=== PATIENT | female | born 1935 | race Caucasian/White ===

== ENCOUNTER 2019-03-06 16:31 | Emergency (ER) | payer MEDICARE, MEDICAID ==
[~2019-03-06] VITALS: Ht 165.1 cm; Wt 78.0 kg
[2019-03-06] MEDS ORDERED: SODIUM CHLORIDE 0.9% 1,000 ML IV ONE (16:55)
[2019-03-06 17:13] LABS: BASOPHILS % 0.5 % (0.0-2.0); EOSINOPHILS % 0.7 % (0.0-5.0); HEMATOCRIT. 36.3 % (36.0-48.0); HEMOGLOBIN. 12.1 g/dL (12.0-16.0); LYMPHOCYTES % 11.9 % (20.0-50.0); MEAN CORPUSCULAR HEMOGLOBIN 29.2 pg (28.0-32.0); MEAN CORPUSCULAR VOLUME 87.8 fL (81.0-99.0); MONOCYTES % 4.8 % (2.0-8.0); NEUTROPHILS % 82.1 % (40.0-76.0); PLATELET 314 x1000/uL (130-400); RED BLOOD CELL COUNT 4.14 mill/uL (4.2-5.4); RED CELL DISTRIBUTION WIDTH 19.5 % (11.6-14.6)
[2019-03-06 17:17] LABS: CHLORIDE 106 mEq/L (98-107)
[2019-03-06 17:43] LABS: CLARITY URINE CLEAR (CLEAR); COLOR URINE YELLOW (YELLOW); KETONES URINE NEGATIVE (NEGATIVE); LEUKOCYTE ESTERASE URINE NEGATIVE (NEGATIVE); NITRITE URINE NEGATIVE (NEGATIVE); OCCULT BLOOD URINE 1+ (NEGATIVE); PROTEIN URINE NEGATIVE (NEGATIVE); SPECIFIC GRAVITY URINE 1.022 (1.005-1.030); UROBILINOGEN URINE 0.2 E.U./dL (0.2-1.0)
[2019-03-06 19:02] VITALS: BP 120/76
[2019-03-07] MEDS ORDERED: DONE5TAB33 PO (17:58)
[2019-03-07] MEDS ORDERED: CITA20SO PO (17:58)
[2019-03-07] MEDS ORDERED: PANT20TA3 PO (17:58)
[2019-03-07] MEDS ORDERED: FERR325T6 PO (17:58)
[2019-03-07] MEDS ORDERED: RANI15SY PO (17:58)
[2019-03-07] MEDS ORDERED: ALPR0.25 PO (17:58)
[2019-03-07] MEDS ORDERED: CALC-1011 PO (17:58)
== END 2019-03-06 19:02 | disposition home or self-care (01) ==
LOC: ER 16:56
DX: R55 Syncope and collapse (principal); I10 Essential (primary) hypertension; R41.0 Disorientation, unspecified
CPT/HCPCS: 36415; 70450; 71045; 80053; 81003; 83880; 84484; 85025; 93005; 96360; 99284; J7030

== ENCOUNTER 2021-07-30 15:57 | Inpatient (IN) | payer MEDICARE, MEDICAID ==
[~2021-07-30] VITALS: Ht 152.4 cm; Wt 74.0 kg
[~2021-07-30 15:57] MED LIST: ALPR0.25 PO; CALC-1011 PO; CITA20SO2 PO; DONE5TAB33 PO; FERR325T6 PO; PANT20TA17 PO; RANI15SY PO
[2021-07-30] MEDS ORDERED: ACETAMINOPHEN 325MG TABLET PO ONE (16:45)
[2021-07-30 17:08] LABS: BASOPHILS % 1.3 % (0.0-2.0); EOSINOPHILS % 1.6 % (0.0-5.0); HEMATOCRIT. 23.8 % (36.0-48.0); HEMOGLOBIN. 7.3 g/dL (12.0-16.0); LYMPHOCYTES % 17.1 % (20.0-50.0); MEAN CORPUSCULAR HEMOGLOBIN 23.7 pg (28.0-32.0); MEAN CORPUSCULAR VOLUME 76.7 fL (81.0-99.0); MEAN PLATELET VOLUME 7.9 fl (7.4-10.4); MONOCYTES % 9.8 % (2.0-8.0); NEUTROPHILS % 70.2 % (40.0-76.0); PLATELET 423 x1000/uL (130-400)
[2021-07-30 17:09] LABS: CHLORIDE 109 mEq/L (98-107)
[2021-07-30 22:11] LABS: CLARITY URINE CLEAR (CLEAR); COLOR URINE YELLOW (YELLOW); KETONES URINE NEGATIVE (NEGATIVE); LEUKOCYTE ESTERASE URINE TRACE (NEGATIVE); NITRITE URINE NEGATIVE (NEGATIVE); OCCULT BLOOD URINE NEGATIVE (NEGATIVE); PH URINE 6.5 (4.5-8.0); PROTEIN URINE NEGATIVE (NEGATIVE); SPECIFIC GRAVITY URINE 1.018 (1.005-1.030); UROBILINOGEN URINE 0.2 E.U./dL (0.2-1.0)
[2021-07-30 23:00] VITALS: BP 167/58
[2021-07-30] MEDS ORDERED: MONTELUKAST (23:40)
[2021-07-30] MEDS ORDERED: FAMOTIDINE (23:40)
[2021-07-30] MEDS ORDERED: ASPI-1497 MT (23:40)
[2021-07-30] MEDS ORDERED: ZYRTEC (23:40)
[2021-07-30] MEDS ORDERED: FUROSEMIDE (23:40)
[2021-07-30] MEDS ORDERED: TYLENOL (23:40)
[2021-07-31] VITALS (10 sets, daily range): BP systolic 134–175; BP diastolic 41–57
[2021-07-31 02:46] LABS: BASOPHILS % 1.4 % (0.0-2.0); EOSINOPHILS % 2.1 % (0.0-5.0); HEMATOCRIT. 23.7 % (36.0-48.0); HEMOGLOBIN. 7.1 g/dL (12.0-16.0); LYMPHOCYTES % 23.2 % (20.0-50.0); MEAN CORPUSCULAR HEMOGLOBIN 23.3 pg (28.0-32.0); MEAN CORPUSCULAR VOLUME 77.8 fL (81.0-99.0); MEAN PLATELET VOLUME 7.3 fl (7.4-10.4); NEUTROPHILS % 63.3 % (40.0-76.0); PLATELET 381 x1000/uL (130-400); RED BLOOD CELL COUNT 3.05 mill/uL (4.2-5.4); RED CELL DISTRIBUTION WIDTH 20.6 % (11.6-14.6)
[2021-07-31 03:08] LABS: CREATINE KINASE 45 IU/L (26-192)
[2021-07-31 03:09] LABS: T4 FREE 0.91 ng/dL (0.76-1.46)
[2021-07-31 03:10] LABS: CREATINE KINASE MB FRACTION 1.2 ng/mL (0.5-3.6)
[2021-07-31 03:11] LABS: TOTAL IRON BINDING CAPACITY 445 ug/dL (250-450)
[2021-07-31] MEDS: PANTOPRAZOLE 40MG DR TABLET PO SCH (06:21)
[2021-07-31] MEDS: CITALOPRAM HYDROBROMIDE 10MG TABLET PO SCH (09:02)
[2021-07-31] MEDS ORDERED: BENA10TA74 PO (10:59)
[2021-07-31] MEDS ORDERED: ALBU2.5V13 NEB (11:01)
[2021-07-31] MEDS ORDERED: FLUT1AER INH (11:01)
[2021-07-31 11:14] LABS: BASOPHILS % 0.7 % (0.0-2.0); EOSINOPHILS % 1.4 % (0.0-5.0); HEMATOCRIT. 21.7 % (36.0-48.0); LYMPHOCYTES % 15.6 % (20.0-50.0); MEAN CORPUSCULAR HEMOGLOBIN 24.2 pg (28.0-32.0); MEAN CORPUSCULAR VOLUME 76.4 fL (81.0-99.0); MEAN PLATELET VOLUME 7.5 fl (7.4-10.4); MONOCYTES % 9.9 % (2.0-8.0); NEUTROPHILS % 72.4 % (40.0-76.0); PLATELET 366 x1000/uL (130-400); RED BLOOD CELL COUNT 2.84 mill/uL (4.2-5.4); RED CELL DISTRIBUTION WIDTH 19.7 % (11.6-14.6)
[2021-07-31 11:16] LABS: CHLORIDE 109 mEq/L (98-107)
[2021-07-31 11:23] LABS: LDL CHOLESTEROL 91 mg/dL (5-100)
[2021-07-31 11:25] LABS: CREATINE KINASE 49 IU/L (26-192); HDL CHOLESTEROL 58 mg/dL (40-59)
[2021-07-31 11:28] LABS: CREATINE KINASE MB FRACTION 1.2 ng/mL (0.5-3.6)
[2021-07-31 11:30] LABS: HEMOGLOBIN. 6.9 g/dL (12.0-16.0)
[2021-07-31] MEDS ORDERED: CEFTRIAXONE 1 G PREMIX 50 ML IV SCH (11:30)
[2021-07-31 12:28] LABS: VITAMIN B12 SERUM 476 pg/mL (211-911)
[2021-07-31] MEDS: CEFTRIAXONE 1,000 MG in DEXTROSE 5% WATER 50 ML IV SCH (13:47)
[2021-07-31] MEDS ORDERED: HYDROCODONE/ACETAMINOPHEN 5/325MG TABLET PO PRN (16:30)
[2021-07-31] MEDS ORDERED: IPRATROPIUM/ALBUTEROL 0.5-3(2.5)MG/3ML NEB HHN PRN (16:30)
[2021-07-31] MEDS ORDERED: BISACODYL 10MG SUPP PR PRN (16:30)
[2021-07-31] MEDS ORDERED: DIPHENHYDRAMINE 50MG/ML VIAL IV PRN (16:30)
[2021-07-31] MEDS ORDERED: ONDANSETRON HCL 4MG/2ML INJ IV PRN (16:30)
[2021-07-31] MEDS ORDERED: BUDESONIDE 0.5MG/2ML NEB HHN SCH (16:30)
[2021-07-31 16:36] LABS: TOTAL IRON BINDING CAPACITY 435 ug/dL (250-450)
[2021-07-31 16:46] LABS: FOLIC ACID (FOLATE) SERUM 17.2 ng/mL (>5.38)
[2021-07-31] MEDS ORDERED: IPRATROPIUM/ALBUTEROL 0.5-3(2.5)MG/3ML NEB HHN SCH (18:00)
[2021-07-31] MEDS: FERROUS SULFATE 325MG TABLET PO SCH (18:26)
[2021-07-31] MEDS: ALPRAZOLAM 0.5 MG TABLET PO PRN (19:36)
[2021-07-31] MEDS: HYDRALAZINE 20MG/ML VIAL IV PRN (20:55)
[2021-08-01] VITALS (7 sets, daily range): BP systolic 99–165; BP diastolic 51–57
[2021-08-01 06:22] LABS: BASOPHILS % 0.9 % (0.0-2.0); EOSINOPHILS % 0.4 % (0.0-5.0); HEMATOCRIT. 28.2 % (36.0-48.0); HEMOGLOBIN. 9.2 g/dL (12.0-16.0); LYMPHOCYTES % 12.8 % (20.0-50.0); MEAN CORPUSCULAR HEMOGLOBIN 25.8 pg (28.0-32.0); MEAN CORPUSCULAR VOLUME 78.6 fL (81.0-99.0); MEAN PLATELET VOLUME 8.3 fl (7.4-10.4); MONOCYTES % 8.2 % (2.0-8.0); NEUTROPHILS % 77.7 % (40.0-76.0); PLATELET 323 x1000/uL (130-400); RED BLOOD CELL COUNT 3.58 mill/uL (4.2-5.4); RED CELL DISTRIBUTION WIDTH 20.5 % (11.6-14.6)
[2021-08-01 06:31] LABS: CHLORIDE 108 mEq/L (98-107)
[2021-08-01 06:33] LABS: PROTHROMBIN TIME 10.6 sec (9.6-11.0)
[2021-08-01] MEDS: HYDRALAZINE 20MG/ML VIAL IV PRN (07:19)
[2021-08-01] MEDS: FERROUS SULFATE 325MG TABLET PO SCH ×2 (12:17→16:19)
[2021-08-01] MEDS: ACETAMINOPHEN 325MG TABLET PO PRN (12:17)
[2021-08-01] MEDS: CEFTRIAXONE 1,000 MG in DEXTROSE 5% WATER 50 ML IV SCH (13:43)
[2021-08-01] MEDS ORDERED: KETOROLAC 15MG/ML VIAL IV NR (15:45)
[2021-08-01] MEDS: PANTOPRAZOLE 40MG DR TABLET PO SCH (16:19)
[2021-08-01] MEDS: CITALOPRAM HYDROBROMIDE 10MG TABLET PO SCH (16:19)
[2021-08-01] MEDS: ALPRAZOLAM 0.5 MG TABLET PO PRN (20:11)
[2021-08-02] VITALS: BP 117/57
[2021-08-02 04:00] VITALS: BP 154/50
[2021-08-02] MEDS: PANTOPRAZOLE 40MG DR TABLET PO SCH (06:17)
[2021-08-02] MEDS: FERROUS SULFATE 325MG TABLET PO SCH ×2 (06:52→12:41)
[2021-08-02 08:00] VITALS: BP 140/52
[2021-08-02] MEDS: CITALOPRAM HYDROBROMIDE 10MG TABLET PO SCH (08:40)
[2021-08-02 11:59] LABS: HEMATOCRIT. 29.8 % (36.0-48.0); HEMOGLOBIN. 9.5 g/dL (12.0-16.0); MEAN CORPUSCULAR HEMOGLOBIN 25.1 pg (28.0-32.0); MEAN CORPUSCULAR VOLUME 79.3 fL (81.0-99.0); MEAN PLATELET VOLUME 7.7 fl (7.4-10.4); PLATELET 355 x1000/uL (130-400); RED BLOOD CELL COUNT 3.76 mill/uL (4.2-5.4); RED CELL DISTRIBUTION WIDTH 21.7 % (11.6-14.6)
[2021-08-02 12:00] VITALS: BP 147/63
[2021-08-02 12:12] LABS: CHLORIDE 104 mEq/L (98-107)
[2021-08-02] MEDS ORDERED: LEVO500T89 MT (12:36)
[2021-08-02] MEDS: CEFTRIAXONE 1,000 MG in DEXTROSE 5% WATER 50 ML IV SCH (12:41)
[2021-08-02] MEDS: ACETAMINOPHEN 325MG TABLET PO PRN (13:30)
[2021-08-02 13:41] VITALS: BP 141/82
[2021-08-03 01:48] LABS: PLATELET ESTIMATE NORMAL
== END 2021-08-02 14:35 | disposition home or self-care (01) | DRG 71 ==
LOC: ER 15:57 → 7EST 21:10 → ENRESERV 21:37
PROVIDERS: ADMIT Internal Medicine; ATTEND Internal Medicine
PROC: 30233N1 Transfusion of Nonautologous Red Blood Cells into Peripheral Vein, Percutaneous Approach (ICD-10-PCS; principal; 2021-07-31)
PROC: 4A10X4Z Monitoring of Central Nervous Electrical Activity, External Approach (ICD-10-PCS; 2021-08-02)
DX: G93.41 Metabolic encephalopathy (principal); G45.9 Transient cerebral ischemic attack, unspecified; N39.0 Urinary tract infection, site not specified; M48.54XA Collapsed vertebra, not elsewhere classified, thoracic region, initial encounter for fracture; D62 Acute posthemorrhagic anemia; D50.9 Iron deficiency anemia, unspecified; E86.0 Dehydration; F32.A Depression, unspecified; I10 Essential (primary) hypertension; J43.9 Emphysema, unspecified; M41.9 Scoliosis, unspecified; M47.816 Spondylosis without myelopathy or radiculopathy, lumbar region; M85.80 Other specified disorders of bone density and structure, unspecified site; I70.8 Atherosclerosis of other arteries; R00.1 Bradycardia, unspecified; M48.02 Spinal stenosis, cervical region; Z60.2 Problems related to living alone; Z20.822 Contact with and (suspected) exposure to COVID-19; Z79.51 Long term (current) use of inhaled steroids; Z79.2 Long term (current) use of antibiotics; Z79.899 Other long term (current) drug therapy
CPT/HCPCS: 36415; 70551; 71045; 72100; 72141; 72146; 72148; 72170; 80048; 80053; 80061; 81003; 82550; 82553; 82607; 82746; 83540; 83550; 84439; 84443; 84484; 85025; 86850; 86870; 86900; 86920; 87426; 93306; 93880; 95816; 97162; 99285; C1893; J0360; J0696; J1885; J7040; J7060; P9016

== ENCOUNTER 2022-06-14 09:07 | Emergency (ER) | payer MEDICARE, MEDICAID ==
[~2022-06-14] VITALS: Ht 167.6 cm; Wt 55.0 kg
[~2022-06-14 09:07] MED LIST changes: +ALBU2.5V13 NEB; +BENA10TA74 PO; -DONE5TAB33 PO; +FAMOTIDINE; +FLUT1AER INH; +LEVO500T90 MT; +MONTELUKAST; -RANI15SY PO; +TYLENOL; +ZYRTEC
[2022-06-14] MEDS ORDERED: IBUPROFEN 600MG TABLET PO ONE (09:30)
[2022-06-14 09:42] VITALS: BP 97/71
[2022-06-14] MEDS ORDERED: T3 PO (12:19)
[2022-06-14] MEDS ORDERED: ONDANSETRON 4MG ODT PO ONE (12:30)
== END 2022-06-14 12:38 | disposition home or self-care (01) ==
LOC: ER 09:07
DX: S20.222A Contusion of left back wall of thorax, initial encounter (principal); M25.512 Pain in left shoulder; D64.9 Anemia, unspecified; F32.9 Major depressive disorder, single episode, unspecified; I10 Essential (primary) hypertension; W01.0XXA Fall on same level from slipping, tripping and stumbling without subsequent striking against object, initial encounter; Y93.89 Activity, other specified; Y92.89 Other specified places as the place of occurrence of the external cause
CPT/HCPCS: 71045; 73030; 99284; Q0162